=== PATIENT | male | born 1995 | race Hispanic/Latino ===

== ENCOUNTER 2017-08-18 11:04 | Inpatient (IN) | payer OTHER, SELFPAY ==
[2017-08-18] MEDS ORDERED: Morphine 4 MG/ML VIAL ONE ×2 (11:14→13:01)
[2017-08-18] MEDS ORDERED: Adacel (T-DAP) 0.5 ML VIAL ONE (11:15)
[2017-08-18] MEDS ORDERED: CEFAZOLIN/Water 2 GM/20 ML SYRINGE ONE ×2 (11:15→14:49)
[2017-08-18] MEDS ORDERED: Ondansetron HCl/PF 4 MG/2 ML Vial ONE ×2 (11:15→15:29)
[2017-08-18 11:21] LABS: #Eosinphils 0.2 thou/uL (0.0-0.7); #Lymphocytes 2.5 thou/uL (1.20-3.40); #Monocytes 0.4 thou/uL (0.11-0.59); #Neutrophils 2.7 thou/uL (1.40-6.50); %Basophils 0.8 % (0.0-1.0); %Eosinophils 3.1 % (0.0-10.0); %Lymphocytes 43.4 % (28.0-48.0); %Monocytes 6.7 % (0.0-4.0); Hematocrit 47.4 % (42.0-52.0); Mean Platelet Volume 6.2 fL (7.4-10.4); Red Blood Cell (RBC) Count 5.04 mill/uL (4.00-5.20); White Blood Cell (WBC) Count 5.8 thou/uL (4.8-10.8)
--- NOTE | 2017-08-18 11:39 | RAD ---
RIGHT FOREARM 2 VIEWS: Date: 08/18/17 HISTORY: Pain. Trauma. Laceration. FINDINGS: No fracture. No cortical irregularity. No radiopaque foreign body. There appears to be a tourniquet overlying the right elbow. IMPRESSION: 1. No fracture. 2. No radiopaque foreign body. POS: [facility]
[2017-08-18] MEDS ORDERED: Dextrose 5% in Water 1,000 ML IV PRN (11:40)
[2017-08-18] MEDS ORDERED: hydrALAZINE 20 MG/ML VIAL SLOW IVP PRN (11:40)
[2017-08-18] MEDS ORDERED: Ondansetron ODT 4 MG TAB PO PRN (11:40)
[2017-08-18] MEDS ORDERED: Promethazine HCl 25 MG/ML VIAL IM PRN ×4 (11:40→19:42)
[2017-08-18] MEDS ORDERED: Dextrose 50% Abboject 50 ML SYRINGE SLOW IVP PRN (11:40)
[2017-08-18] MEDS ORDERED: Ondansetron HCl/PF 4 MG/2 ML Vial IVP PRN ×2 (11:40→19:32)
[2017-08-18] MEDS ORDERED: Morphine 4 MG/ML Carpuject IVP PRN (11:40)
[2017-08-18 11:49] LABS: ALT (SGPT) 15 U/L (8-55); AST (SGOT) 20 U/L (5-34); Alkaline Phosphatase 86 U/L (Less than 750); Anion Gap 13 mmol/L (10-20); BUN (Urea Nitrogen) 16 mg/dL (8.9-20.6); Bilirubin, Total 0.6 mg/dL (0.2-1.2); Calc. Creatinine Clearance 0 mL/min (70-130); Calcium 9.8 mg/dL (7.8-10.44); Carbon Dioxide 25 mmol/L (22-29); Chloride 104 mmol/L (98-107); Estimated GFR-MDRD 86; Globulin 2.8 g/dL (2.4-3.5); Protein, Total 7.7 g/dL (6.0-8.3)
--- NOTE | 2017-08-18 12:12 | HP ---
DATE OF ADMISSION: 08/18/2017 REQUESTING PHYSICIAN: Penelope Herrera M.D. ADMITTING PHYSICIAN: Dr. Rogel. CONSULTATIONS: Hand Surgery, Dr. Reddy; Vascular Surgery, Dr. Melgar. HISTORY OF PRESENT ILLNESS: Patient is a 22-year-old man who was working with a piece of sh eet metal when it slipped and lacerated his right dominant wrist. The patient presented to the [facility] with significant bleeding from his wrist which was controlled with tourniquet. He un derwent evaluation, on examination, it was noted he was likely lacerated his ulnar artery and flexor tendons on the ulnar aspect of his right dominant wrist at which time we were asked to evaluate the p atient for admission and obtained hand and vascular consultations. MEDICATIONS: None. ALLERGIES: None. PAST SURGICAL HISTORY: None. PAST MEDICAL HISTORY: None. SOCIAL HISTORY: Patient has a significant smoking history. Admits to smoking approximately 2 packs per day. Denies drug use and occasional alcohol use. The patient is employed as a custodial laborer. FAMILY MEDICAL HISTORY: None. REVIEW OF SYSTEMS: Ten point review of systems is negative unless otherwise stated. PHYSICAL EXAMINATION: VITAL SIGNS: Blood pressure 111/80, heart rate 78, respirations 18, oxygen saturation is 100% on santos m air, and temperature is 99.2. HEENT: Head is normocephalic, atraumatic. Eyes: Extraocular motion intact. PERRLA bilaterally. E ars are atraumatic without discharge. Oropharynx is clear. Nose is atraumatic without discharge. NECK: Nontender. Trachea is midline. No JVD. CHEST: Clear to auscultation bilaterally with good inspiratory and expiratory effort. ABDOMEN: Soft, flat, and nontender. HEART: Regular rate and rhythm. EXTREMITIES: Left upper extremity is unremarkable. Bilateral lower extremities are unremarkable. R ight upper extremity shows approximately 7 cm jagged laceration that starts essentially at the right hypothenar eminence and travels down towards the ulnar styloid. Currently, bleeding is controlled wi th a pressure dressing and patient has capillary refill, it was less than 3 seconds. He has diminish ed sensation primarily on the ulnar side, difficult to tell if this is due to laceration or from the tourniquet that was just changed. Patient definitely had a decreased flexure range of motion of his small finger and ring finger. BACK: Nontraumatic and nontender. LABORATORY DATA AND IMAGING: White blood cell count 5.8, hemoglobin 16, hematocrit 47.4, and platele ts 262. Sodium 138, potassium 4.0, chloride 104, CO2 25, BUN 16, creatinine 1.09, and glucose 112. LFTs are unremarkable. Radiographs of the right forearm show no fracture or foreign bodies. ASSESSMENT AND PLAN: 1. Status post laceration by sheet metal. 2. Right dominant wrist. 3. Ulnar artery laceration. 4. Flexure tendon injury to right wrist. Plan will be to admit the patient to the surgical floor. Consultation with Hand Surgery and with Vas cular Surgery if needed. The patient had his tetanus updated and was given 2 grams of Ancef in the e mergency department. The evaluation, examination, radiographic and laboratory findings will be discu ssed with Dr. Rogel after this dictation.
[2017-08-18] MEDS ORDERED: Fentanyl 100 MCG/2 ML VIAL ONE ×3 (14:49→18:35)
[2017-08-18] MEDS ORDERED: Midazolam HCl 2 mg/2 ml Vial ONE (14:49)
[2017-08-18] MEDS ORDERED: ePHEDrine/0.9% NaCl/PF SYRINGE 50 mg/10 ml ONE (15:29)
[2017-08-18] MEDS ORDERED: Lidocaine 1% PF 5 ML VIAL ONE (15:29)
[2017-08-18] MEDS ORDERED: PHENYLEPHRINE-NS 100 MCG/ML 10 ML SYRINGE ONE (15:29)
[2017-08-18] MEDS ORDERED: Propofol 200 MG/20 ML VIAL ONE (15:29)
[2017-08-18] MEDS ORDERED: Ketorolac Tromethamine 30 MG/ML VIAL ONE (15:29)
[2017-08-18] MEDS ORDERED: Lidocaine 2% w/Epinephrine 1:200K 20 ML VIAL ONE (15:45)
[2017-08-18] MEDS ORDERED: Heparin 10,000 UNITS/1 ML VIAL ONE (15:46)
[2017-08-18] MEDS ORDERED: Betamet Acet/Betamet Na Ph 30 MG/5 ML VIAL ONE (15:46)
[2017-08-18] MEDS ORDERED: Thrombin 5000 UNITS/5 ML VIAL ONE (15:46)
[2017-08-18] MEDS ORDERED: Hetastarch 6% 500 ML 500 ML ONE (15:46)
[2017-08-18] MEDS ORDERED: Bacitracin Zinc Ointment 30 gm TUBE ONE (15:46)
[2017-08-18] MEDS ORDERED: Bupivacaine PF 0.5% 30 ML VIAL ONE (15:46)
[2017-08-18] MEDS ORDERED: Promethazine HCl 25 MG/ML VIAL SLOW IVP PRN (19:32)
[2017-08-18] MEDS ORDERED: Meperidine HCl/PF 25 MG/ML VIAL IM PRN (19:42)
[2017-08-18] MEDS ORDERED: Morphine 4 MG/ML VIAL SLOW IVP PRN (19:43)
[2017-08-18] MEDS: Pregabalin 50 MG CAP PO SCH (23:39)
[2017-08-18] MEDS: CEFAZOLIN 1 GM, Syringe 2.5 ML in Sterile Water 7.5 ML SLOW IVP SCH (23:40)
[2017-08-18] MEDS: Gentamicin Sulfate 80 MG in Premix Bag 1 BAG IVPB SCH (23:41)
[2017-08-18] MEDS: Sodium Chloride 0.9% 1,000 ML IV SCH (23:50)
[2017-08-19] MEDS: Hetastarch 6% 500 ML 500 ML IVPB SCH ×2 (02:55→18:49)
[2017-08-19] MEDS: CEFAZOLIN 1 GM, Syringe 2.5 ML in Sterile Water 7.5 ML SLOW IVP SCH ×3 (02:57→14:33)
[2017-08-19 06:28] LABS: #Lymphocytes 1.1 thou/uL (1.20-3.40); #Monocytes 0.3 thou/uL (0.11-0.59); #Neutrophils 3.6 thou/uL (1.40-6.50); %Basophils 0.4 % (0.0-1.0); %Eosinophils 0.9 % (0.0-10.0); %Lymphocytes 21.5 % (28.0-48.0); Mean Platelet Volume 6.1 fL (7.4-10.4); Red Blood Cell (RBC) Count 3.51 mill/uL (4.00-5.20); White Blood Cell (WBC) Count 4.9 thou/uL (4.8-10.8)
[2017-08-19 07:30] LABS: Anion Gap 9 mmol/L (10-20); BUN (Urea Nitrogen) 8 mg/dL (8.9-20.6); Calc. Creatinine Clearance 0 mL/min (70-130); Calcium 8.2 mg/dL (7.8-10.44); Carbon Dioxide 25 mmol/L (22-29); Chloride 107 mmol/L (98-107); Estimated GFR-MDRD Greater than 90
[2017-08-19] MEDS: Sodium Chloride 0.9% 1,000 ML IV SCH ×2 (08:05→08:59)
[2017-08-19 08:14] VITALS: BMI 23.5
[2017-08-19] MEDS ORDERED: traMADol HCl 50 MG TAB PO PRN ×2 (08:49)
[2017-08-19] MEDS: Pregabalin 50 MG CAP PO SCH ×2 (08:55→21:04)
[2017-08-19] MEDS: Acetaminophen 500 MG TAB PO SCH ×4 (10:27→21:04)
--- NOTE | 2017-08-19 11:11 | ADD-HP ---
ADDENDUM Please note, this is a late dictation. [facility]. For full details, please see his H&P. In summary, Mr. Keller is a 22-year-old previously healthy man with no past medical history who cut his right wrist with mark e sheet metal inadvertently yesterday. He had a large amount of bleeding at the scene and came to [facility] with a tourniquet in place. He was found to have an ulnar injury as well as flexor tendon injuries on bedside exam. Dr. Reddy of hand surgery is going to take him to the operating room f or this. PAST MEDICAL HISTORY: Reviewed by myself. PAST SURGICAL HISTORY: He has no past surgical history except for an elbow surgery on the same arm s ome years ago and is not on any outpatient medications. A complete physical exam was performed, although I did not unwrap his arm as he was on his way to the operating room. He had no other injuries and his exam was otherwise normal except some motor defici ts of his right arm. He had difficulty with apposition and DDI movement, but capillary refill was no rmal. ASSESSMENT: Right hand injury and this is the patient's dominant hand and he is going to the operati ng room with Dr. Reddy for repair of his ulnar artery and flexor tendons. Postoperatively, Dr. Connor hodge plans to keep him in the hospital for anticoagulation observation. He does not have any other medical or traumatic issues.
[2017-08-19] MEDS: Ibuprofen 800 MG TAB PO SCH ×2 (14:31→21:04)
--- NOTE | 2017-08-19 16:35 | PRG ---
DATE OF SERVICE: 08/19/2017 SUBJECTIVE: The patient is hospital day #2, postop day #1 status post laceration to right dominant w rist. The patient yesterday underwent surgical repair of his right ulnar nerve, ulnar artery and sma ll finger flexor tendon. Patient tolerated this procedure well and overnight had no issues. This mo rning, he states that he is tolerating a diet and his pain is controlled and he is ambulating to the bathroom without assistance. OBJECTIVE: VITAL SIGNS: Temperature is 99.0, heart rate 90, blood pressure 106/65, respirations 16, oxygen satu ration 100% on room air. GENERAL: Patient is resting comfortably in bed. He is alert and oriented x3. Melanie coma scale is 15. HEENT: Unremarkable. LUNGS: Clear to auscultation bilaterally. HEART: Regular rate and rhythm. ABDOMEN: Soft, flat, and nontender with active bowel sounds. EXTREMITIES: Neurovascularly intact x4. The right upper extremity is in a splint with postop dressi ng that is clean, dry, and intact. LABORATORY DATA AND IMAGING: White blood cell count 4.9, hemoglobin 11.3, hematocrit 34.0, platelets 177. Sodium 137, potassium 4.1, chloride 107, CO2 25, BUN 8, creatinine 0.69, glucose 97. There we re no radiographs to review this morning. ASSESSMENT AND PLAN: 1. Status post laceration to right wrist. 2. Status post repair of right ulnar nerve, ulnar artery and flexor tendons. Plan will be to contin ue supportive care, pain control, walking program as directed by Dr. Reddy. After discussion with Dr. Reddy, most likely the patient will be able to be discharged possibly late tomorrow.
[2017-08-19] MEDS: Gentamicin Sulfate 80 MG in Premix Bag 1 BAG IVPB SCH (16:36)
--- NOTE | 2017-08-19 20:49 | OP ---
DATE OF PROCEDURE: 08/18/2017 PREOPERATIVE DIAGNOSES: 1. Right ulnar artery laceration. 2. Right ulnar nerve laceration. 3. Flexor tendon laceration. FINDINGS: 1. Intact flexor tendons within the carpal canal through FDS, FDP, flexor pollicis longus. 2. Median nerve not injured, but small opening of one portion of the carpal transverse ligament. 3. Ulnar artery complete laceration and 70% ulnar nerve laceration with a Guyon's canal and 100% lac eration of the flexor carpi ulnaris, 6 mm short of this insertion. No fracture seen. PROCEDURES PERFORMED: 1. Irrigation of wound with debridement: The techniques as follows. A. Instruments used Left Hand blade, 11 blade knife, tenotomy scissors, as is curette. B. Excisional technique. C. Margins were deep down to, but not including bone on subfascial. D. There was no gross infection and minimal tissue necrosis seen for management. 2. Closure of wound, 7 cm. 3. Repair of flexor carpi ulnaris tendon. 4. Microscopic repair of ulnar nerve laceration at the wrist level. 5. Microscopic repair of ulnar artery, wrist level. 7. Median nerve neuroplasty. INDICATION: The patient had actually with sheet metal. Primary Turkish speaker had used an [employer] line or [employer] translate. Had one friend who witnessed the accident and gave most of the history . DESCRIPTION OF PROCEDURE: After successful general endotracheal anesthesia augmented by 12 mL, 0.5% Marcaine block leydi-incisional, no epinephrine, the patient had limb prepped and draped. Timeout was done appropriately. Limb was exsanguinated, tourniquet inflated to 250 mmHg pressure. We extended the incision 3 cm proximal and 2.5 cm distal. This allowed to expose the entire area. A transversed carpal ligament release was performed. We inspected the entire contents. No laceratio n, blood, hematoma or even synovial injury was seen. The median nerve was intact. We then noticed the complete tear of the mid lacerations of the distal carpal ulnaris and 5 mm proxim al to the insertion as well as by dissection on the new magnification, we could see a complete ulnar artery laceration and a digital nerve laceration. We retracted the tendon, brought the microscope in to the field and began an intrafascicular repair of the ulnar nerve. This was done involving the fac t that some nerve laceration, so we could see which we minimally cleaned them of any devoid tis diego, using 9-0 Nurolon for this and fascicular repair and we repaired the sheath around this as well. I then turned our attention to the ulnar artery. We began repair the artery with tourniquet up, but we had to release the tourniquet in order to do definitive care, so we released the tourniquet, the p roximal side was definitely bleeding and there was pulsatile aspect of the proximal side, but we had to do several maneuvers to include direct removal of clot, using the vessel instrument to remove clot , and then irrigating the arterial ends on both sides with Marina solution (10 mL, 2% Xylocaine, no epi nephrine mixed with 10 mL Hespan mixed with heparin, 10 mL standard mix). Then, we released the tourniquet, and we had pulsatile flow from both sides with much greater on prox imal side than the distal and we also were able to then clamp the vessel with individual clamps. The n, we began a 9 mm nylon suture back wall first repair and then tied the sutures once we irrigated on e last time to make sure there was a good blood flow. The repair was excellent with the tourniquet deflated, and then we were able to visualize, the nerve remained intact. He had excellent flexion attitude to his digits. We kept the wrist approximately 1 0 degrees flexed and we repaired the flexor carpal ulnaris using multiple [id number] 4-0 Prolene sutures. The repair was excellent with the wrist dorsiflexed to 10 degrees and there was no gap for mation. Hemostasis was reaffirmed after the flexor tendon repair as listed above, we then closed the incision after trimming some of the wound edges that were made by the laceration outside. Then, we used a co mbination of a 4-0 Monocryl subcutaneous in an interrupted fashion and interrupted 4-0 nylon simple p attern to close dermis and epidermis. Bulky dressing was applied and the patient left the operating room with excellent flow. No evidence of anesthetic or operative complication and the pink digit.
[2017-08-20] MEDS: Acetaminophen 500 MG TAB PO SCH ×5 (00:12→17:13)
[2017-08-20] MEDS: Ibuprofen 800 MG TAB PO SCH ×2 (05:12→13:47)
[2017-08-20 06:09] LABS: #Eosinphils 0.1 thou/uL (0.0-0.7); #Lymphocytes 1.6 thou/uL (1.20-3.40); #Monocytes 0.2 thou/uL (0.11-0.59); %Basophils 0.3 % (0.0-1.0); %Lymphocytes 40.2 % (28.0-48.0); %Monocytes 6.2 % (0.0-4.0); Hematocrit 36.3 % (42.0-52.0); Mean Platelet Volume 6.3 fL (7.4-10.4); Red Blood Cell (RBC) Count 3.73 mill/uL (4.00-5.20)
[2017-08-20] MEDS: Pregabalin 50 MG CAP PO SCH (08:33)
[2017-08-20] MEDS ORDERED: Aspirin 325 mg Enteric Coated Tablet PO SCH (09:00)
[2017-08-20] MEDS: Gentamicin Sulfate 80 MG in Premix Bag 1 BAG IVPB SCH (15:33)
[2017-08-20 16:21] VITALS: BP 122/74; TEMP 98.6
== END 2017-08-20 17:30 | disposition home or self-care (01) | DRG 464 ==
LOC: ERS 11:04 → SDC 14:17 → SURG A 20:22
PROVIDERS: ADMIT Surgery; ATTEND Surgery
PROC: 0JBG0ZZ Excision of Right Lower Arm Subcutaneous Tissue and Fascia, Open Approach (ICD-10-PCS; principal; 2017-08-18)
PROC: 03Q90ZZ Repair Right Ulnar Artery, Open Approach (ICD-10-PCS; 2017-08-18)
PROC: 01Q40ZZ Repair Ulnar Nerve, Open Approach (ICD-10-PCS; 2017-08-18)
PROC: 0LQ50ZZ Repair Right Lower Arm and Wrist Tendon, Open Approach (ICD-10-PCS; 2017-08-18)
PROC: 01Q50ZZ Repair Median Nerve, Open Approach (ICD-10-PCS; 2017-08-18)
DX: S66.128A Laceration of flexor muscle, fascia and tendon of other finger at wrist and hand level, initial encounter (principal); S65.011A Laceration of ulnar artery at wrist and hand level of right arm, initial encounter; S64.01XA Injury of ulnar nerve at wrist and hand level of right arm, initial encounter; S61.511A Laceration without foreign body of right wrist, initial encounter; W18.30XA Fall on same level, unspecified, initial encounter; Y93.H3 Activity, building and construction; Y92.69 Other specified industrial and construction area as the place of occurrence of the external cause
CPT/HCPCS: 36415; 80048; 80053; 85025; 86850; 86900; 86901; 90471; 90715; 96361; 96374; 96375; 96376; A4216; J0690; J0702; J1580; J1644; J1885; J2001; J2250; J2270; J2405; J2704; J3010; S0020